=== PATIENT | male | born 1950 | race Caucasian/White ===

== ENCOUNTER → 2022-03-08 | Outpatient (REF) | LOC: M RAD 10:21 | PROVIDERS: ATTEND Physician Assistant Medical | DX: Z01.818 Encounter for other preprocedural examination (principal) ==

== ENCOUNTER 2023-06-13 06:45 | Day surgery (SDC) | payer BC, MEDICARE, OTHER ==
[~2023-06-13] VITALS: Ht 177.8 cm; Wt 90.7 kg
[~2023-06-13 06:45] MED LIST: ACE65ERTAB PO; ALFU10TA3 PO; ATOR80TA59 PO; BISA5TAB15 PO; DOCU100C16 PO; FINA5TAB2 PO; FLUTISP; MIRA3350 PO; NS 1,000 ML IV ONE; PANT40TA29 PO; PREG300C2 PO; SILD100T PO; VITA100054 PO
[2023-06-13] MEDS ORDERED: LIDOCAINE 2% 100MG/5ML SDV (FOR ANES.) As Ordered ONE (07:56)
[2023-06-13] MEDS ORDERED: fentaNYL 100 MCG/2 ML INJECTION As Ordered ONE (07:56)
[2023-06-13] MEDS ORDERED: propofoL 200 MG/20 ML VIAL As Ordered ONE (07:56)
[2023-06-13 08:30] VITALS: TEMP 97.5
[2023-06-13 08:45] VITALS: BP 123/60; O2SAT 97
== END 2023-06-13 09:00 | disposition home or self-care (01) ==
LOC: M OPP 06:45
PROVIDERS: ATTEND Internal Medicine Gastroenterology
DX: Z12.11 Encounter for screening for malignant neoplasm of colon (principal); D12.0 Benign neoplasm of cecum; K64.0 First degree hemorrhoids; K57.30 Diverticulosis of large intestine without perforation or abscess without bleeding; K22.89 Other specified disease of esophagus; K21.00 Gastro-esophageal reflux disease with esophagitis, without bleeding; R12 Heartburn; Z87.891 Personal history of nicotine dependence; Z79.02 Long term (current) use of antithrombotics/antiplatelets; Z79.1 Long term (current) use of non-steroidal anti-inflammatories (NSAID); Z79.51 Long term (current) use of inhaled steroids; Z79.84 Long term (current) use of oral hypoglycemic drugs; Z79.899 Other long term (current) drug therapy; Z88.8 Allergy status to other drugs, medicaments and biological substances
CPT/HCPCS: 43239; 45385; 88305; J3010

== ENCOUNTER → 2024-05-14 | Outpatient (CLI) | payer MEDICARE, OTHER ==
[~2024-05-14] MED LIST changes: +ALFU10TA23 PO; -ALFU10TA3 PO; -NS 1,000 ML IV ONE
== END ==
LOC: M RAD 14:34
PROVIDERS: ATTEND Physician Assistant Medical
DX: Z12.2 Encounter for screening for malignant neoplasm of respiratory organs (principal); Z87.891 Personal history of nicotine dependence